=== PATIENT | female | born 1935 | race Asian ===

== ENCOUNTER 2018-03-20 20:44 | Inpatient (IN) | payer MEDICARE, MEDICAID ==
[~2018-03-20] VITALS: Ht 165.1 cm; Wt 73.5 kg
[~2018-03-20 20:44] MED LIST: CLON0.1T PO; FELO10TA PO; FURO-151 PO; HYDR-4135 PO; ROSU20TA PO; VALS320T16 PO
[2018-03-20] MEDS ORDERED: SODIUM CHLORIDE 0.9% 500 ML IV ONE (21:11)
[2018-03-20] MEDS ORDERED: PRED10TA PO (21:45)
[2018-03-20] MEDS ORDERED: ASPI-1158 PO (21:46)
[2018-03-20] MEDS ORDERED: IRBE150T27 MT (21:48)
[2018-03-20] MEDS ORDERED: GABA-529 PO (21:49)
[2018-03-20] MEDS ORDERED: AMLO5TAB4 MT (21:51)
[2018-03-20 22:59] LABS: CLARITY URINE CLEAR (CLEAR); COLOR URINE YELLOW (YELLOW); KETONES URINE NEGATIVE (NEGATIVE); LEUKOCYTE ESTERASE URINE TRACE (NEGATIVE); NITRITE URINE NEGATIVE (NEGATIVE); OCCULT BLOOD URINE NEGATIVE (NEGATIVE); PH URINE 5.5 (4.5-8.0); PROTEIN URINE TRACE (NEGATIVE); SPECIFIC GRAVITY URINE 1.004 (1.005-1.030); UROBILINOGEN URINE 0.2 E.U./dL (0.2-1.0)
[2018-03-20 23:21] LABS: BASOPHILS % 0.4 % (0.0-2.0); EOSINOPHILS % 0.3 % (0.0-5.0); HEMATOCRIT. 33.9 % (36.0-48.0); HEMOGLOBIN. 11.2 g/dL (12.0-16.0); LYMPHOCYTES % 26.2 % (20.0-50.0); MEAN CORPUSCULAR VOLUME 93.6 fL (81.0-99.0); MEAN PLATELET VOLUME 8.8 fl (7.4-10.4); MONOCYTES % 11.6 % (2.0-8.0); NEUTROPHILS % 61.5 % (40.0-76.0); PLATELET 128 x1000/uL (130-400); RED BLOOD CELL COUNT 3.62 mill/uL (4.2-5.4); RED CELL DISTRIBUTION WIDTH 13.7 % (11.6-14.6)
[2018-03-20 23:23] LABS: CHLORIDE 110 mEq/L (98-107)
[2018-03-20 23:26] LABS: PROTHROMBIN TIME 10.4 sec (9.1-11.1)
[2018-03-21] MEDS ORDERED: CEFTRIAXONE 1 G PREMIX 50 ML IV ONE (00:45)
[2018-03-21] MEDS ORDERED: ONDANSETRON HCL 4MG/2ML INJ IV PRN (12:45)
[2018-03-21] MEDS ORDERED: GUAIFENESIN 200MG/10ML SUGAR FREE UDC PO PRN (12:45)
[2018-03-21] MEDS ORDERED: LORAZEPAM 0.5MG TABLET PO PRN (12:45)
[2018-03-21] MEDS ORDERED: IPRATROPIUM/ALBUTEROL 0.5-3(2.5)MG/3ML NEB INH PRN (12:45)
[2018-03-21] MEDS ORDERED: NA PHOS,M-B/NA PHOS,DI-BA ENEMA 118ML PR PRN (12:45)
[2018-03-21] MEDS: DEXT 5%/0.45% NACL 1000ML 1,000 ML IV SCH ×2 (12:45→15:27)
[2018-03-21] MEDS ORDERED: ACETAMINOPHEN 325MG TABLET PO PRN (12:45)
[2018-03-21] MEDS ORDERED: HYDROCODONE/ACETAMINOPHEN 5/325MG TABLET PO PRN (12:45)
[2018-03-21] MEDS ORDERED: DEXTROSE 50% WATER 50ML SYRINGE IV PRN (12:45)
[2018-03-21] MEDS ORDERED: ACETAMINOPHEN 650MG SUPP PR PRN (12:45)
[2018-03-21] MEDS ORDERED: CLONIDINE 0.1MG TABLET PO PRN (12:45)
[2018-03-21] MEDS ORDERED: DIPHENHYDRAMINE 50MG/ML VIAL IV PRN (12:45)
[2018-03-21] MEDS ORDERED: MAGNESIUM/ALUMINUM HYDROXIDE/SIMETHICONE 30ML UDC PO PRN (12:45)
[2018-03-21 13:01] LABS: BG BASE EXCESS -2.9 mmol/L (-2.0-2.0); BG CARBOXYHEMOGLOBIN 0.3 % (0.5-1.5); BG DEOXYHEMOGLOBIN 4.8 % (0.0-5.0); BG HCO3 ACT 21.5 mmol/L (22.0-26.0); BG METHEMOGLOBIN 0.3 % (0.0-1.5); BG OXYGEN SATURATION 95.2 % (92.0-98.5); BG OXYHEMOGLOBIN 94.6 % (94.0-97.0); BG PCO2 36.4 mmHg (35.0-45.0); BG PO2 79.5 mmHg (75.0-100.0); BG SAMPLE SITE RIGHT RADIAL; BG TOTAL HEMOGLOBIN 11.4 g/dL (12.0-18.0); BG VENT MODE ROOM AIR
[2018-03-21] MEDS ORDERED: PIPERACILLIN/TAZ 2.25G PREMIX 50 ML IV SCH (13:30)
[2018-03-21 20:00] VITALS: BP 189/53
[2018-03-21 20:34] LABS: CREATINE KINASE 69 IU/L (26-192); CREATINE KINASE MB FRACTION < 1.0 ng/mL (0.5-3.6)
[2018-03-21] MEDS: BLOOD SUGAR DIAGNOSTIC STRIP TEST SCH (21:00)
[2018-03-21 21:30] VITALS: BP 139/53
[2018-03-21] MEDS: PIPERACILLIN/TAZ 2.25G PREMIX 50 ML IV SCH (22:28)
[2018-03-21] MEDS: INSULIN LISPRO 100 UNITS/ML SUBCUT SCH (22:28)
[2018-03-22] VITALS: BP 123/56
[2018-03-22 00:44] LABS: CREATINE KINASE 69 IU/L (26-192)
[2018-03-22 00:45] LABS: CREATINE KINASE MB FRACTION < 1.0 ng/mL (0.5-3.6)
[2018-03-22] MEDS: IPRATROPIUM/ALBUTEROL 0.5-3(2.5)MG/3ML NEB INH SCH ×4 (01:45→21:45)
[2018-03-22] MEDS: ASPIRIN 81MG EC TABLET PO SCH (02:34)
[2018-03-22 04:00] VITALS: BP 128/57
[2018-03-22] MEDS: PIPERACILLIN/TAZ 2.25G PREMIX 50 ML IV SCH ×2 (06:23→13:59)
[2018-03-22] MEDS: BLOOD SUGAR DIAGNOSTIC STRIP TEST SCH ×4 (06:35→21:00)
[2018-03-22] MEDS: INSULIN LISPRO 100 UNITS/ML SUBCUT SCH ×4 (06:36→21:00)
[2018-03-22] MEDS: PANTOPRAZOLE 40MG DR TABLET PO SCH (06:46)
[2018-03-22 07:01] LABS: CHLORIDE 114 mEq/L (98-107)
[2018-03-22 07:10] LABS: HEMATOCRIT. 32.3 % (36.0-48.0); HEMOGLOBIN. 10.7 g/dL (12.0-16.0); MEAN CORPUSCULAR HEMOGLOBIN 30.7 pg (28.0-32.0); MEAN CORPUSCULAR VOLUME 92.9 fL (81.0-99.0); PLATELET 133 x1000/uL (130-400); RED BLOOD CELL COUNT 3.48 mill/uL (4.2-5.4); RED CELL DISTRIBUTION WIDTH 13.6 % (11.6-14.6)
[2018-03-22 07:11] LABS: HDL CHOLESTEROL 41 mg/dL (40-59); LDL CHOLESTEROL 31 mg/dL (5-100)
[2018-03-22 07:12] LABS: T4 FREE 1.17 ng/dL (0.76-1.46)
[2018-03-22 08:00] VITALS: BP_SYST 125; BP_SYST 147; BP_DIAS 49; BP_DIAS 67
[2018-03-22] MEDS: ENOXAPARIN 30MG/0.3ML SYR SUBCUT SCH (10:00)
[2018-03-22] MEDS: LOSARTAN POTASSIUM 100 MG TABLET PO SCH (10:00)
[2018-03-22 12:00] VITALS: BP 125/49
[2018-03-22 14:36] LABS: ATYPICAL LYMPHOCYTES 5; PLATELET ESTIMATE NORMAL
[2018-03-22 16:00] VITALS: BP 118/62
[2018-03-22 20:00] VITALS: BP 127/54
[2018-03-23] VITALS: BP 147/54
[2018-03-23] MEDS: DEXT 5%/0.45% NACL 1000ML 1,000 ML IV SCH (01:08)
[2018-03-23] MEDS: PIPERACILLIN/TAZ 2.25G PREMIX 50 ML IV SCH ×2 (01:08→06:01)
[2018-03-23] MEDS: IPRATROPIUM/ALBUTEROL 0.5-3(2.5)MG/3ML NEB INH SCH ×3 (03:23→14:05)
[2018-03-23 04:00] VITALS: BP 134/52
[2018-03-23] MEDS: PANTOPRAZOLE 40MG DR TABLET PO SCH (06:01)
[2018-03-23] MEDS: INSULIN LISPRO 100 UNITS/ML SUBCUT SCH ×2 (06:02→12:24)
[2018-03-23] MEDS: BLOOD SUGAR DIAGNOSTIC STRIP TEST SCH ×2 (06:02→12:19)
[2018-03-23 06:31] LABS: BASOPHILS % 0.8 % (0.0-2.0); EOSINOPHILS % 0.6 % (0.0-5.0); HEMATOCRIT. 31.8 % (36.0-48.0); HEMOGLOBIN. 10.5 g/dL (12.0-16.0); LYMPHOCYTES % 40.9 % (20.0-50.0); MEAN CORPUSCULAR HEMOGLOBIN 30.8 pg (28.0-32.0); MEAN CORPUSCULAR VOLUME 93.4 fL (81.0-99.0); MEAN PLATELET VOLUME 8.8 fl (7.4-10.4); MONOCYTES % 14.7 % (2.0-8.0); PLATELET 130 x1000/uL (130-400); RED BLOOD CELL COUNT 3.41 mill/uL (4.2-5.4); RED CELL DISTRIBUTION WIDTH 13.8 % (11.6-14.6)
[2018-03-23 08:00] VITALS: BP 127/52
[2018-03-23] MEDS: ASPIRIN 81MG EC TABLET PO SCH (09:50)
[2018-03-23] MEDS: LOSARTAN POTASSIUM 100 MG TABLET PO SCH (09:50)
[2018-03-23] MEDS: ENOXAPARIN 30MG/0.3ML SYR SUBCUT SCH (09:51)
[2018-03-23 12:00] VITALS: BP 143/60
[2018-03-23] MEDS ORDERED: PREDNISONE 20MG TABLET PO SCH (14:00)
[2018-03-23 14:19] VITALS: BP 143/60
== END 2018-03-23 14:50 | disposition home or self-care (01) | DRG 177 ==
LOC: ER 21:09 → EDBEDREQDT 03-21 00:11 → EDBEDREQ 03-21 01:25 → EDBEDREQTM 03-21 01:25 → EDBEDREQDT 03-21 01:25 → ENRESERV 03-21 19:04 → 5WST 03-21 20:10
PROVIDERS: ADMIT Internal Medicine; ATTEND Internal Medicine
DX: J69.0 Pneumonitis due to inhalation of food and vomit (principal); I50.33 Acute on chronic diastolic (congestive) heart failure; I13.0 Hypertensive heart and chronic kidney disease with heart failure and stage 1 through stage 4 chronic kidney disease, or unspecified chronic kidney disease; N17.9 Acute kidney failure, unspecified; G93.40 Encephalopathy, unspecified; N39.0 Urinary tract infection, site not specified; J44.1 Chronic obstructive pulmonary disease with (acute) exacerbation; J98.11 Atelectasis; J84.9 Interstitial pulmonary disease, unspecified; G90.8 Other disorders of autonomic nervous system; E11.65 Type 2 diabetes mellitus with hyperglycemia; D64.9 Anemia, unspecified; E11.22 Type 2 diabetes mellitus with diabetic chronic kidney disease; E86.0 Dehydration; N18.9 Chronic kidney disease, unspecified; E78.5 Hyperlipidemia, unspecified; I27.20 Pulmonary hypertension, unspecified; R79.1 Abnormal coagulation profile; Z79.899 Other long term (current) drug therapy
CPT/HCPCS: 36415; 36600; 70551; 71045; 78582; 80048; 80061; 82375; 82550; 82553; 82805; 82962; 83036; 83605; 83880; 84439; 84443; 84484; 85379; 92610; 93005; 93306; 93880; 93970; 94640; 96361; 96365; 97110; 97162; 99284; 99285; A9558; J0696; J1650; J1815; J2543; J7030; J7040; J7512; J7620

== ENCOUNTER 2019-02-09 12:18 | Inpatient (IN) | payer MEDICARE, MEDICAID ==
[~2019-02-09] VITALS: Ht 167.6 cm; Wt 86.6 kg
[~2019-02-09 12:18] MED LIST changes: +AMLO5TAB4 MT; +ASPI-1158 PO; -FELO10TA PO; +GABA-529 PO; -ROSU20TA PO; +ROSU20TA2 PO; -VALS320T16 PO
[2019-02-09] MEDS ORDERED: SODIUM CHLORIDE 0.9% 1,000 ML IV ONE (12:30)
[2019-02-09] MEDS ORDERED: ACETAMINOPHEN 325MG TABLET PO STA (12:30)
[2019-02-09] MEDS ORDERED: ACETAMINOPHEN 650MG SUPP PR STA (12:53)
[2019-02-09 13:02] LABS: BASOPHILS % 0.4 % (0.0-2.0); EOSINOPHILS % 1.1 % (0.0-5.0); HEMATOCRIT. 41.2 % (36.0-48.0); HEMOGLOBIN. 13.6 g/dL (12.0-16.0); LYMPHOCYTES % 12.8 % (20.0-50.0); MEAN CORPUSCULAR HEMOGLOBIN 30.4 pg (28.0-32.0); MEAN CORPUSCULAR VOLUME 92.2 fL (81.0-99.0); MEAN PLATELET VOLUME 9.1 fl (7.4-10.4); MONOCYTES % 9.1 % (2.0-8.0); NEUTROPHILS % 76.6 % (40.0-76.0); PLATELET 191 x1000/uL (130-400); RED BLOOD CELL COUNT 4.47 mill/uL (4.2-5.4); RED CELL DISTRIBUTION WIDTH 13.4 % (11.6-14.6)
[2019-02-09 13:10] LABS: PROTHROMBIN TIME 10.8 sec (9.6-11.0)
[2019-02-09 13:13] LABS: CHLORIDE 99 mEq/L (98-107)
[2019-02-09] MEDS ORDERED: VANCOMYCIN 1 G PREMIX 200 ML IV ONE (13:30)
[2019-02-09] MEDS ORDERED: PIPERACILLIN/TAZ 3.375G PREMIX 50 ML IV ONE (13:30)
[2019-02-09] MEDS ORDERED: SODIUM CHLORIDE 0.9% 1000ML BAG (SEPSIS BOLUS) IV ONE (13:30)
[2019-02-09 22:01] LABS: CLARITY URINE CLEAR (CLEAR); COLOR URINE YELLOW (YELLOW); KETONES URINE NEGATIVE (NEGATIVE); LEUKOCYTE ESTERASE URINE NEGATIVE (NEGATIVE); NITRITE URINE NEGATIVE (NEGATIVE); OCCULT BLOOD URINE 1+ (NEGATIVE); PH URINE 5.5 (4.5-8.0); PROTEIN URINE 1+ (NEGATIVE); SPECIFIC GRAVITY URINE 1.011 (1.005-1.030)
[2019-02-10] VITALS (9 sets, daily range): BP systolic 122–166; BP diastolic 35–85
[2019-02-10] MEDS ORDERED: IPRATROPIUM/ALBUTEROL 0.5-3(2.5)MG/3ML NEB HHN SCH (04:00)
[2019-02-10] MEDS ORDERED: METHYLPREDNISOLONE SOD SUCC 125 MG/2 ML VIAL IV SCH (04:40)
[2019-02-10] MEDS ORDERED: PIPERACILLIN/TAZOBACTAM 2.25 G in DEXTROSE 5% WATER 50 ML IV SCH (06:00)
[2019-02-10 09:49] LABS: BG BASE EXCESS -2.3 mmol/L (-2.0-2.0); BG DEOXYHEMOGLOBIN 5.1 % (0.0-5.0); BG FRACTION INSPIRED OXYGEN 32; BG HCO3 ACT 22.3 mmol/L (22.0-26.0); BG METHEMOGLOBIN 0.3 % (0.0-1.5); BG OXYGEN SATURATION 94.8 % (92.0-98.5); BG OXYHEMOGLOBIN 93.6 % (94.0-97.0); BG PCO2 37.7 mmHg (35.0-45.0); BG PO2 74.7 mmHg (75.0-100.0); BG SAMPLE SITE RIGHT RADIAL; BG VENT MODE NASAL CANNULA
[2019-02-10] MEDS ORDERED: CLONIDINE 0.1MG TABLET PO PRN (10:00)
[2019-02-10] MEDS ORDERED: ONDANSETRON HCL 4MG/2ML INJ IV PRN (10:00)
[2019-02-10] MEDS ORDERED: LORAZEPAM 0.5MG TABLET PO PRN (10:00)
[2019-02-10] MEDS ORDERED: DIPHENHYDRAMINE 50MG/ML VIAL IV PRN (10:00)
[2019-02-10] MEDS ORDERED: DOCUSATE SODIUM 100MG CAPSULE PO PRN (10:00)
[2019-02-10] MEDS ORDERED: HYDROCODONE/ACETAMINOPHEN 5/325MG TABLET PO PRN (10:00)
[2019-02-10] MEDS ORDERED: IPRATROPIUM/ALBUTEROL 0.5-3(2.5)MG/3ML NEB NEB PRN (10:00)
[2019-02-10] MEDS ORDERED: ACETAMINOPHEN 650MG SUPP PR PRN (10:00)
[2019-02-10] MEDS ORDERED: ACETAMINOPHEN 325MG TABLET PO PRN (10:00)
[2019-02-10] MEDS ORDERED: MAGNESIUM/ALUMINUM HYDROXIDE/SIMETHICONE 30ML UDC PO PRN (10:00)
[2019-02-10] MEDS ORDERED: DEXTROSE 50% WATER 50ML SYRINGE IV PRN (10:00)
[2019-02-10] MEDS ORDERED: NA PHOS,M-B/NA PHOS,DI-BA ENEMA 118ML PR PRN (10:00)
[2019-02-10 10:58] LABS: BG BASE EXCESS -0.6 mmol/L (-2.0-2.0); BG CARBOXYHEMOGLOBIN 0.3 % (0.5-1.5); BG DEOXYHEMOGLOBIN 7.8 % (0.0-5.0); BG FRACTION INSPIRED OXYGEN 21; BG HCO3 ACT 23.6 mmol/L (22.0-26.0); BG METHEMOGLOBIN 0.1 % (0.0-1.5); BG OXYGEN SATURATION 92.2 % (92.0-98.5); BG OXYHEMOGLOBIN 91.8 % (94.0-97.0); BG PCO2 37.8 mmHg (35.0-45.0); BG PH 7.414 (7.350-7.450); BG PO2 60.3 mmHg (75.0-100.0); BG SAMPLE SITE RIGHT RADIAL; BG TOTAL HEMOGLOBIN 13.3 g/dL (12.0-18.0); BG VENT MODE ROOM AIR
[2019-02-10] MEDS ORDERED: SODIUM CHLORIDE 0.9% FOR INH 3ML VIAL NEB INH ONE (11:30)
[2019-02-10] MEDS: BLOOD SUGAR DIAGNOSTIC STRIP TEST SCH ×3 (12:07→21:18)
[2019-02-10] MEDS: METHYLPREDNISOLONE SOD SUCC 40 MG/ML VIAL IV SCH ×2 (12:22→21:00)
[2019-02-10 12:35] LABS: HEMOGLOBIN. 13.1 g/dL (12.0-16.0); MEAN CORPUSCULAR HEMOGLOBIN 30.5 pg (28.0-32.0); MEAN CORPUSCULAR VOLUME 90.8 fL (81.0-99.0); MEAN PLATELET VOLUME 8.5 fl (7.4-10.4); PLATELET 179 x1000/uL (130-400); RED BLOOD CELL COUNT 4.29 mill/uL (4.2-5.4); RED CELL DISTRIBUTION WIDTH 13.7 % (11.6-14.6)
[2019-02-10] MEDS ORDERED: INSULIN LISPRO 100 UNITS/ML SUBCUT SCH (13:00)
[2019-02-10] MEDS ORDERED: INSULIN LISPRO 100 UNITS/ML SUBCUT NR (13:00)
[2019-02-10] MEDS ORDERED: VANCOMYCIN 500 MG PREMIX 100 ML IV SCH (13:00)
[2019-02-10 13:14] LABS: PLATELET ESTIMATE NORMAL
[2019-02-10] MEDS ORDERED: RACEPINEPHRINE 2.25% 0.5ML NEB VIAL ONE (13:34)
[2019-02-10] MEDS: PIPERACILLIN/TAZOBACTAM 2.25 G in DEXTROSE 5% WATER 50 ML IV SCH ×2 (14:18→18:30)
[2019-02-10] MEDS: AMLODIPINE 5MG TABLET PO SCH (15:38)
[2019-02-10 17:00] LABS: *BARBITURATES SCREEN URINE NEGATIVE (NEGATIVE); *BENZODIAZEPINES SCREEN URINE NEGATIVE (NEGATIVE); *COCAINE SCREEN URINE NEGATIVE (NEGATIVE); METHADONE URINE SCREEN NEGATIVE (NEGATIVE); OPIATES URINE SCREEN NEGATIVE (NEGATIVE); PHENCYCLIDINE URINE SCREEN NEGATIVE (NEGATIVE)
[2019-02-10 17:01] LABS: *AMPHETAMINES SCREEN URINE NEGATIVE (NEGATIVE); CANNABINOID URINE SCREEN NEGATIVE (NEGATIVE)
[2019-02-10] MEDS: VANCOMYCIN 750 MG PREMIX 150 ML IV SCH (18:29)
[2019-02-10] MEDS: ENOXAPARIN 40MG/0.4ML SYR SUBCUT SCH (18:30)
[2019-02-10] MEDS: HYDRALAZINE HCL 50MG TABLET PO SCH (18:30)
[2019-02-10] MEDS: INSULIN LISPRO 100 UNITS/ML SUBCUT SCH ×2 (18:31→21:17)
[2019-02-10] MEDS ORDERED: POTASSIUM CHLORIDE 20MEQ TABLET SR PO NR (20:00)
[2019-02-10] MEDS: FAMOTIDINE 40MG TABLET PO SCH (20:59)
[2019-02-10] MEDS: ATORVASTATIN CALCIUM 40MG TABLET PO SCH (20:59)
[2019-02-10] MEDS ORDERED: ATORVASTATIN CALCIUM 40MG TABLET PO SCH (21:00)
[2019-02-10] MEDS: INSULIN GLARGINE UD 100 UNITS/ML SYR SUBCUT SCH (21:18)
[2019-02-10] MEDS: GUAIFENESIN 200MG/10ML SUGAR FREE UDC PO PRN (21:20)
[2019-02-11] VITALS (7 sets, daily range): BP systolic 112–145; BP diastolic 45–70
[2019-02-11] MEDS: PIPERACILLIN/TAZOBACTAM 2.25 G in DEXTROSE 5% WATER 50 ML IV SCH ×4 (00:31→18:00)
[2019-02-11] MEDS: IPRATROPIUM/ALBUTEROL 0.5-3(2.5)MG/3ML NEB NEB SCH ×4 (04:28→21:55)
[2019-02-11] MEDS: METHYLPREDNISOLONE SOD SUCC 40 MG/ML VIAL IV SCH ×2 (04:29→11:53)
[2019-02-11] MEDS: BLOOD SUGAR DIAGNOSTIC STRIP TEST SCH ×4 (06:17→21:40)
[2019-02-11 08:56] LABS: BG BASE EXCESS -2.2 mmol/L (-2.0-2.0); BG CARBOXYHEMOGLOBIN 0.1 % (0.5-1.5); BG DEOXYHEMOGLOBIN 5.7 % (0.0-5.0); BG HCO3 ACT 21.3 mmol/L (22.0-26.0); BG METHEMOGLOBIN 0.3 % (0.0-1.5); BG OXYGEN SATURATION 94.3 % (92.0-98.5); BG OXYHEMOGLOBIN 93.9 % (94.0-97.0); BG PCO2 32.6 mmHg (35.0-45.0); BG PH 7.433 (7.350-7.450); BG PO2 68.3 mmHg (75.0-100.0); BG SAMPLE SITE RIGHT BRACHIAL; BG TOTAL HEMOGLOBIN 12.9 g/dL (12.0-18.0); BG VENT MODE ROOM AIR
[2019-02-11] MEDS ORDERED: MEDICATION NOT ON FORMULARY EA (Rosuvastatin Calcium (Crestor) 1 TAB) PO SCH (09:00)
[2019-02-11] MEDS: INSULIN LISPRO 100 UNITS/ML SUBCUT SCH ×4 (09:13→22:28)
[2019-02-11] MEDS: GABAPENTIN 100MG CAPSULE PO SCH (09:14)
[2019-02-11] MEDS: FUROSEMIDE 40MG TABLET PO SCH (09:14)
[2019-02-11] MEDS: ASPIRIN 81MG EC TABLET PO SCH (09:14)
[2019-02-11] MEDS: HYDRALAZINE HCL 50MG TABLET PO SCH ×3 (09:15→17:09)
[2019-02-11] MEDS: AMLODIPINE 5MG TABLET PO SCH (09:15)
[2019-02-11 09:17] LABS: HEMOGLOBIN. 12.4 g/dL (12.0-16.0); MEAN CORPUSCULAR HEMOGLOBIN 30.3 pg (28.0-32.0); MEAN CORPUSCULAR VOLUME 90.6 fL (81.0-99.0); MEAN PLATELET VOLUME 8.6 fl (7.4-10.4); PLATELET 185 x1000/uL (130-400); RED BLOOD CELL COUNT 4.08 mill/uL (4.2-5.4); RED CELL DISTRIBUTION WIDTH 13.4 % (11.6-14.6)
[2019-02-11 09:36] LABS: CHLORIDE 106 mEq/L (98-107)
[2019-02-11] MEDS: BUDESONIDE 0.5MG/2ML NEB HHN SCH ×2 (09:36→21:55)
[2019-02-11 09:44] LABS: LDL CHOLESTEROL 55 mg/dL (5-100)
[2019-02-11 09:46] LABS: HDL CHOLESTEROL 42 mg/dL (40-59)
[2019-02-11 10:28] LABS: PLATELET ESTIMATE NORMAL
[2019-02-11] MEDS: INSULIN GLARGINE UD 100 UNITS/ML SYR SUBCUT SCH ×2 (12:00→22:28)
[2019-02-11] MEDS ORDERED: INSULIN GLARGINE UD 100 UNITS/ML SYR SUBCUT SCH (15:00)
[2019-02-11] MEDS: GUAIFENESIN 200MG/10ML SUGAR FREE UDC PO PRN (17:08)
[2019-02-11] MEDS: ENOXAPARIN 40MG/0.4ML SYR SUBCUT SCH (17:08)
[2019-02-11] MEDS ORDERED: LORAZEPAM 2MG/ML CPJ IV PRN (17:15)
[2019-02-11] MEDS ORDERED: HYDROCODONE/ACETAMINOPHEN 5/325MG TABLET PO PRN (17:15)
[2019-02-11] MEDS: FAMOTIDINE 40MG TABLET PO SCH (22:17)
[2019-02-11] MEDS: ATORVASTATIN CALCIUM 40MG TABLET PO SCH (22:17)
[2019-02-12] VITALS: BP 115/84
[2019-02-12] MEDS: METHYLPREDNISOLONE SOD SUCC 40 MG/ML VIAL IV SCH ×2 (00:36→13:04)
[2019-02-12] MEDS: PIPERACILLIN/TAZOBACTAM 2.25 G in DEXTROSE 5% WATER 50 ML IV SCH ×3 (00:36→17:40)
[2019-02-12] MEDS: IPRATROPIUM/ALBUTEROL 0.5-3(2.5)MG/3ML NEB NEB SCH ×4 (02:32→20:59)
[2019-02-12 04:00] VITALS: BP 120/49
[2019-02-12] MEDS: VANCOMYCIN 750 MG PREMIX 150 ML IV SCH ×2 (04:18→20:59)
[2019-02-12] MEDS: BLOOD SUGAR DIAGNOSTIC STRIP TEST SCH ×4 (05:52→20:59)
[2019-02-12] MEDS: INSULIN LISPRO 100 UNITS/ML SUBCUT SCH ×4 (06:31→21:24)
[2019-02-12 08:00] VITALS: BP 130/67
[2019-02-12] MEDS: BUDESONIDE 0.5MG/2ML NEB HHN SCH ×2 (08:31→21:31)
[2019-02-12 09:10] LABS: HEMATOCRIT. 35.2 % (36.0-48.0); HEMOGLOBIN. 11.8 g/dL (12.0-16.0); MEAN CORPUSCULAR HEMOGLOBIN 30.4 pg (28.0-32.0); MEAN CORPUSCULAR VOLUME 90.8 fL (81.0-99.0); MEAN PLATELET VOLUME 8.8 fl (7.4-10.4); PLATELET 198 x1000/uL (130-400); RED BLOOD CELL COUNT 3.88 mill/uL (4.2-5.4); RED CELL DISTRIBUTION WIDTH 13.5 % (11.6-14.6)
[2019-02-12] MEDS: ASPIRIN 81MG EC TABLET PO SCH (09:27)
[2019-02-12] MEDS: AMLODIPINE 5MG TABLET PO SCH (09:28)
[2019-02-12] MEDS: FUROSEMIDE 40MG TABLET PO SCH (09:28)
[2019-02-12] MEDS: HYDRALAZINE HCL 50MG TABLET PO SCH ×3 (09:28→17:41)
[2019-02-12] MEDS: GABAPENTIN 100MG CAPSULE PO SCH (09:28)
[2019-02-12] MEDS ORDERED: INSULIN LISPRO 100 UNITS/ML SUBCUT NR ×2 (10:15→16:45)
[2019-02-12] MEDS: INSULIN GLARGINE UD 100 UNITS/ML SYR SUBCUT SCH ×2 (10:41→21:25)
[2019-02-12 12:00] VITALS: BP 111/51
[2019-02-12] MEDS ORDERED: PIPERACILLIN/TAZOBACTAM 2.25 G in DEXTROSE 5% WATER 50 ML IV SCH (13:30)
[2019-02-12 14:21] LABS: PLATELET ESTIMATE NORMAL
[2019-02-12 16:00] VITALS: BP 119/42
[2019-02-12] MEDS: ENOXAPARIN 40MG/0.4ML SYR SUBCUT SCH (16:51)
[2019-02-12 20:00] VITALS: BP 109/47
[2019-02-12] MEDS: ATORVASTATIN CALCIUM 40MG TABLET PO SCH (20:58)
[2019-02-12] MEDS: FAMOTIDINE 40MG TABLET PO SCH (20:58)
[2019-02-13] VITALS: BP 91/49
[2019-02-13] MEDS: PIPERACILLIN/TAZOBACTAM 2.25 G in DEXTROSE 5% WATER 50 ML IV SCH ×4 (00:50→17:33)
[2019-02-13] MEDS: METHYLPREDNISOLONE SOD SUCC 40 MG/ML VIAL IV SCH ×2 (00:50→13:01)
[2019-02-13 04:00] VITALS: BP 137/59
[2019-02-13] MEDS: INSULIN LISPRO 100 UNITS/ML SUBCUT SCH ×4 (06:10→21:17)
[2019-02-13] MEDS: BLOOD SUGAR DIAGNOSTIC STRIP TEST SCH ×4 (06:45→21:09)
[2019-02-13] MEDS: BUDESONIDE 0.5MG/2ML NEB HHN SCH (07:56)
[2019-02-13] MEDS: IPRATROPIUM/ALBUTEROL 0.5-3(2.5)MG/3ML NEB NEB SCH ×3 (07:56→21:33)
[2019-02-13 08:00] VITALS: BP 126/54
[2019-02-13] MEDS: GABAPENTIN 100MG CAPSULE PO SCH (09:33)
[2019-02-13] MEDS: HYDRALAZINE HCL 50MG TABLET PO SCH ×3 (09:33→17:33)
[2019-02-13] MEDS: ASPIRIN 81MG EC TABLET PO SCH (09:33)
[2019-02-13] MEDS: FUROSEMIDE 40MG TABLET PO SCH (09:33)
[2019-02-13] MEDS: INSULIN GLARGINE UD 100 UNITS/ML SYR SUBCUT SCH ×2 (09:34→21:17)
[2019-02-13] MEDS: AMLODIPINE 5MG TABLET PO SCH (09:34)
[2019-02-13 12:00] VITALS: BP 133/56
[2019-02-13] MEDS ORDERED: INSULIN GLARGINE UD 100 UNITS/ML SYR SUBCUT NR (12:30)
[2019-02-13 16:00] VITALS: BP 123/60
[2019-02-13] MEDS: ENOXAPARIN 40MG/0.4ML SYR SUBCUT SCH (17:33)
[2019-02-13 20:00] VITALS: BP 127/53
[2019-02-13] MEDS: VANCOMYCIN 750 MG PREMIX 150 ML IV SCH (21:08)
[2019-02-13] MEDS: ATORVASTATIN CALCIUM 40MG TABLET PO SCH (21:08)
[2019-02-13] MEDS: FAMOTIDINE 40MG TABLET PO SCH (21:09)
[2019-02-13] MEDS ORDERED: INSULIN GLARGINE UD 100 UNITS/ML SYR SUBCUT SCH (22:00)
[2019-02-14] VITALS (7 sets, daily range): BP systolic 113–146; BP diastolic 52–68
[2019-02-14] MEDS: METHYLPREDNISOLONE SOD SUCC 40 MG/ML VIAL IV SCH ×2 (00:29→11:58)
[2019-02-14] MEDS: PIPERACILLIN/TAZOBACTAM 2.25 G in DEXTROSE 5% WATER 50 ML IV SCH ×4 (00:29→17:14)
[2019-02-14] MEDS: IPRATROPIUM/ALBUTEROL 0.5-3(2.5)MG/3ML NEB NEB SCH ×4 (01:46→20:50)
[2019-02-14] MEDS: BLOOD SUGAR DIAGNOSTIC STRIP TEST SCH ×6 (02:00→21:23)
[2019-02-14 06:06] LABS: HEMOGLOBIN 12.6 g/dL (12.0-16.0); MEAN CORPUSCULAR HEMOGLOBIN 30.7 pg (28.0-32.0); MEAN CORPUSCULAR VOLUME 90.6 fL (81.0-99.0); PLATELET 229 x1000/uL (130-400); RED BLOOD CELL COUNT 4.08 mill/uL (4.2-5.4); RED CELL DISTRIBUTION WIDTH 13.7 % (11.6-14.6)
[2019-02-14] MEDS: INSULIN LISPRO 100 UNITS/ML SUBCUT SCH ×4 (06:45→21:26)
[2019-02-14] MEDS: ASPIRIN 81MG EC TABLET PO SCH (08:48)
[2019-02-14] MEDS: HYDRALAZINE HCL 50MG TABLET PO SCH ×3 (08:49→17:14)
[2019-02-14] MEDS: FUROSEMIDE 40MG TABLET PO SCH (08:49)
[2019-02-14] MEDS: GABAPENTIN 100MG CAPSULE PO SCH (08:49)
[2019-02-14] MEDS: AMLODIPINE 5MG TABLET PO SCH (08:49)
[2019-02-14] MEDS: INSULIN GLARGINE UD 100 UNITS/ML SYR SUBCUT SCH ×2 (09:52→21:28)
[2019-02-14] MEDS ORDERED: POTASSIUM CHLORIDE 20MEQ TABLET SR PO SCH (15:15)
[2019-02-14] MEDS: ENOXAPARIN 40MG/0.4ML SYR SUBCUT SCH (17:15)
[2019-02-14] MEDS: VANCOMYCIN 750 MG PREMIX 150 ML IV SCH (21:23)
[2019-02-14] MEDS: FAMOTIDINE 40MG TABLET PO SCH (21:24)
[2019-02-14] MEDS: ATORVASTATIN CALCIUM 40MG TABLET PO SCH (21:24)
== END 2019-02-14 22:50 | DRG 871 ==
LOC: ER 12:18 → 5EST 13:45 → EDBEDREQ 13:47 → ENRESERV 02-10 09:32 → SUPCPDRO 02-10 09:59 → 3WST 02-11 00:20 → 5WST 02-11 10:40
PROVIDERS: ADMIT Ophthalmology; ATTEND Ophthalmology
DX: A41.9 Sepsis, unspecified organism (principal); I50.33 Acute on chronic diastolic (congestive) heart failure; J18.9 Pneumonia, unspecified organism; E87.1 Hypo-osmolality and hyponatremia; E87.2 Acidosis; N17.9 Acute kidney failure, unspecified; J44.1 Chronic obstructive pulmonary disease with (acute) exacerbation; N39.0 Urinary tract infection, site not specified; J44.0 Chronic obstructive pulmonary disease with (acute) lower respiratory infection; G93.40 Encephalopathy, unspecified; R06.03 Acute respiratory distress; I11.0 Hypertensive heart disease with heart failure; E87.6 Hypokalemia; I27.20 Pulmonary hypertension, unspecified; R09.02 Hypoxemia; K76.89 Other specified diseases of liver; T38.0X5A Adverse effect of glucocorticoids and synthetic analogues, initial encounter; E11.65 Type 2 diabetes mellitus with hyperglycemia; F03.90 Unspecified dementia, unspecified severity, without behavioral disturbance, psychotic disturbance, mood disturbance, and anxiety; G89.29 Other chronic pain; K80.20 Calculus of gallbladder without cholecystitis without obstruction; M48.061 Spinal stenosis, lumbar region without neurogenic claudication; M54.16 Radiculopathy, lumbar region; Z78.1 Physical restraint status; Z79.82 Long term (current) use of aspirin; Z79.899 Other long term (current) drug therapy; Y92.89 Other specified places as the place of occurrence of the external cause
CPT/HCPCS: 36415; 36600; 71045; 71250; 72148; 80048; 80053; 80061; 80202; 80305; 81003; 82375; 82805; 82962; 83036; 83605; 84145; 84439; 84443; 84484; 85025; 85027; 87070; 87804; 93005; 93306; 94640; 96365; 97116; 97162; 97530; 99291; J1200; J1650; J1815; J2543; J2920; J2930; J3370; J7030; J7040; J7060; J7626

== ENCOUNTER 2019-02-14 22:58 | Inpatient (IN) | payer MEDICARE, MEDICAID ==
[~2019-02-14] VITALS: Ht 167.6 cm; Wt 86.6 kg
[2019-02-14 22:58] VITALS: BP 129/46
[2019-02-15] MEDS ORDERED: ONDANSETRON HCL 4MG TABLET PO PRN (00:45)
[2019-02-15] MEDS ORDERED: DIPHENHYDRAMINE 50MG/ML VIAL IV PRN (00:45)
[2019-02-15] MEDS ORDERED: LORAZEPAM 2MG/ML CPJ IV PRN (00:45)
[2019-02-15] MEDS ORDERED: NA PHOS,M-B/NA PHOS,DI-BA ENEMA 118ML PR PRN (00:45)
[2019-02-15] MEDS ORDERED: DOCUSATE SODIUM 100MG CAPSULE PO PRN (00:45)
[2019-02-15] MEDS ORDERED: CLONIDINE 0.1MG TABLET PO PRN (00:45)
[2019-02-15] MEDS ORDERED: MAGNESIUM/ALUMINUM HYDROXIDE/SIMETHICONE 30ML UDC PO PRN (00:45)
[2019-02-15] MEDS ORDERED: ACETAMINOPHEN 325MG TABLET PO PRN ×2 (00:45)
[2019-02-15] MEDS ORDERED: GUAIFENESIN 200MG/10ML SUGAR FREE UDC PO PRN (00:45)
[2019-02-15] MEDS ORDERED: DEXTROSE 50% WATER 50ML SYRINGE IV PRN (00:45)
[2019-02-15] MEDS ORDERED: IPRATROPIUM/ALBUTEROL 0.5-3(2.5)MG/3ML NEB HHN PRN (00:45)
[2019-02-15] MEDS ORDERED: ENOXAPARIN 40MG/0.4ML SYR SUBCUT SCH (00:45)
[2019-02-15] MEDS ORDERED: VANCOMYCIN 1 G PREMIX 200 ML IV SCH (03:00)
[2019-02-15] MEDS: PIPERACILLIN/TAZOBACTAM 2.25 G in DEXTROSE 5% WATER 50 ML IV SCH ×4 (03:21→21:44)
[2019-02-15 06:15] LABS: BASOPHILS % 0.5 % (0.0-2.0); EOSINOPHILS % 0.2 % (0.0-5.0); HEMOGLOBIN. 12.1 g/dL (12.0-16.0); LYMPHOCYTES % 7.1 % (20.0-50.0); MEAN CORPUSCULAR HEMOGLOBIN 29.8 pg (28.0-32.0); MEAN CORPUSCULAR VOLUME 91.4 fL (81.0-99.0); MEAN PLATELET VOLUME 8.9 fl (7.4-10.4); MONOCYTES % 9.2 % (2.0-8.0); PLATELET 219 x1000/uL (130-400); RED BLOOD CELL COUNT 4.05 mill/uL (4.2-5.4); RED CELL DISTRIBUTION WIDTH 13.5 % (11.6-14.6)
[2019-02-15] MEDS: BLOOD SUGAR DIAGNOSTIC STRIP TEST SCH ×4 (06:19→21:00)
[2019-02-15 08:00] VITALS: BP 150/67
[2019-02-15] MEDS: GABAPENTIN 100MG CAPSULE PO SCH (08:09)
[2019-02-15] MEDS: AMLODIPINE 5MG TABLET PO SCH (08:09)
[2019-02-15] MEDS: FUROSEMIDE 40MG TABLET PO SCH (08:10)
[2019-02-15] MEDS: ASPIRIN 81MG TABLET PO SCH (08:10)
[2019-02-15] MEDS: HYDRALAZINE HCL 50MG TABLET PO SCH ×3 (08:10→21:45)
[2019-02-15] MEDS: INSULIN LISPRO 100 UNITS/ML SUBCUT SCH ×4 (08:22→23:36)
[2019-02-15] MEDS ORDERED: METHYLPREDNISOLONE SOD SUCC 40 MG/ML VIAL IV SCH (09:00)
[2019-02-15] MEDS: HYDROCODONE/ACETAMINOPHEN 5/325MG TABLET PO PRN (09:17)
[2019-02-15] MEDS: INSULIN GLARGINE UD 100 UNITS/ML SYR SUBCUT SCH ×2 (10:09→23:35)
[2019-02-15] MEDS: IPRATROPIUM/ALBUTEROL 0.5-3(2.5)MG/3ML NEB HHN SCH ×3 (10:51→19:57)
[2019-02-15] MEDS ORDERED: PNEUMOCOCCAL 23-VAL P-SAC VAC 0.5 ML IM ONE (12:00)
[2019-02-15] MEDS: ENOXAPARIN 40MG/0.4ML SYR SUBCUT SCH (15:37)
[2019-02-15] MEDS: VANCOMYCIN 750 MG PREMIX 150 ML IV SCH (17:27)
[2019-02-15 20:00] VITALS: BP 105/57
[2019-02-15] MEDS ORDERED: VANCOMYCIN 750 MG PREMIX 150 ML IV SCH ×2 (21:00)
[2019-02-15] MEDS ORDERED: FAMOTIDINE 40MG TABLET PO SCH (21:00)
[2019-02-15] MEDS: ATORVASTATIN CALCIUM 40MG TABLET PO SCH (21:44)
[2019-02-16] MEDS: IPRATROPIUM/ALBUTEROL 0.5-3(2.5)MG/3ML NEB HHN SCH ×4 (02:17→20:22)
[2019-02-16] MEDS: PIPERACILLIN/TAZOBACTAM 2.25 G in DEXTROSE 5% WATER 50 ML IV SCH ×2 (02:32→08:46)
[2019-02-16] MEDS: HYDRALAZINE HCL 50MG TABLET PO SCH ×3 (05:57→21:26)
[2019-02-16 06:32] LABS: HEMATOCRIT 36.1 % (36.0-48.0); HEMOGLOBIN 12.3 g/dL (12.0-16.0); MEAN CORPUSCULAR HEMOGLOBIN 30.8 pg (28.0-32.0); MEAN CORPUSCULAR VOLUME 90.3 fL (81.0-99.0); PLATELET 225 x1000/uL (130-400); RED CELL DISTRIBUTION WIDTH 13.4 % (11.6-14.6)
[2019-02-16] MEDS: BLOOD SUGAR DIAGNOSTIC STRIP TEST SCH ×4 (07:01→21:26)
[2019-02-16] MEDS: INSULIN LISPRO 100 UNITS/ML SUBCUT SCH ×4 (07:02→21:00)
[2019-02-16 08:00] VITALS: BP 121/60
[2019-02-16 08:34] VITALS: BP 121/60
[2019-02-16] MEDS: AMLODIPINE 5MG TABLET PO SCH (08:46)
[2019-02-16] MEDS: ASPIRIN 81MG TABLET PO SCH (08:46)
[2019-02-16] MEDS: FUROSEMIDE 40MG TABLET PO SCH (08:46)
[2019-02-16] MEDS: GABAPENTIN 100MG CAPSULE PO SCH (08:46)
[2019-02-16] MEDS ORDERED: METHYLPREDNISOLONE SOD SUCC 40 MG/ML VIAL IV SCH (09:00)
[2019-02-16] MEDS: INSULIN GLARGINE UD 100 UNITS/ML SYR SUBCUT SCH ×2 (12:08→21:37)
[2019-02-16] MEDS: VANCOMYCIN 750 MG PREMIX 150 ML IV SCH (12:09)
[2019-02-16] MEDS: LACTULOSE 20G/30ML UDC PO SCH ×2 (14:13→16:55)
[2019-02-16] MEDS ORDERED: BISACODYL 10MG SUPP PR PRN (14:15)
[2019-02-16] MEDS ORDERED: NA PHOS,M-B/NA PHOS,DI-BA ENEMA 118ML PR PRN (14:15)
[2019-02-16] MEDS ORDERED: POTASSIUM CHLORIDE 20MEQ TABLET SR PO NR (16:30)
[2019-02-16] MEDS: ENOXAPARIN 40MG/0.4ML SYR SUBCUT SCH (16:55)
[2019-02-16] MEDS ORDERED: LEVOFLOXACIN 500MG TABLET PO SCH (17:00)
[2019-02-16 20:00] VITALS: BP 124/46
[2019-02-16] MEDS: ATORVASTATIN CALCIUM 40MG TABLET PO SCH (21:27)
[2019-02-16] MEDS: FAMOTIDINE 20MG TABLET PO SCH (21:27)
[2019-02-17] MEDS: IPRATROPIUM/ALBUTEROL 0.5-3(2.5)MG/3ML NEB HHN SCH ×4 (01:52→20:12)
[2019-02-17 02:49] LABS: CLARITY URINE CLEAR (CLEAR); COLOR URINE YELLOW (YELLOW); KETONES URINE NEGATIVE (NEGATIVE); LEUKOCYTE ESTERASE URINE NEGATIVE (NEGATIVE); NITRITE URINE NEGATIVE (NEGATIVE); OCCULT BLOOD URINE NEGATIVE (NEGATIVE); PH URINE 5.5 (4.5-8.0); PROTEIN URINE TRACE (NEGATIVE); SPECIFIC GRAVITY URINE 1.018 (1.005-1.030); UROBILINOGEN URINE 0.2 E.U./dL (0.2-1.0)
[2019-02-17] MEDS: LACTULOSE 20G/30ML UDC PO SCH ×4 (06:00→17:37)
[2019-02-17] MEDS: HYDRALAZINE HCL 50MG TABLET PO SCH ×3 (06:12→21:31)
[2019-02-17] MEDS: BLOOD SUGAR DIAGNOSTIC STRIP TEST SCH ×4 (06:12→21:31)
[2019-02-17] MEDS: INSULIN LISPRO 100 UNITS/ML SUBCUT SCH ×4 (06:31→21:37)
[2019-02-17 08:05] VITALS: BP 106/50
[2019-02-17] MEDS: FUROSEMIDE 40MG TABLET PO SCH (08:33)
[2019-02-17] MEDS: ASPIRIN 81MG TABLET PO SCH (08:33)
[2019-02-17] MEDS: PREDNISONE 20MG TABLET PO SCH (08:33)
[2019-02-17] MEDS: GABAPENTIN 100MG CAPSULE PO SCH (08:33)
[2019-02-17] MEDS: AMLODIPINE 5MG TABLET PO SCH (08:36)
[2019-02-17] MEDS: INSULIN GLARGINE UD 100 UNITS/ML SYR SUBCUT SCH ×2 (11:57→21:37)
[2019-02-17] MEDS: ENOXAPARIN 40MG/0.4ML SYR SUBCUT SCH (16:20)
[2019-02-17] MEDS: LEVOFLOXACIN 250MG TABLET PO SCH (16:20)
[2019-02-17 20:00] VITALS: BP 113/53
[2019-02-17] MEDS: FAMOTIDINE 20MG TABLET PO SCH (21:31)
[2019-02-17] MEDS: ATORVASTATIN CALCIUM 40MG TABLET PO SCH (21:31)
[2019-02-18] MEDS: IPRATROPIUM/ALBUTEROL 0.5-3(2.5)MG/3ML NEB HHN SCH ×4 (00:18→21:21)
[2019-02-18] MEDS: LACTULOSE 20G/30ML UDC PO SCH ×3 (06:00→12:00)
[2019-02-18] MEDS: BLOOD SUGAR DIAGNOSTIC STRIP TEST SCH ×4 (06:09→21:43)
[2019-02-18] MEDS: HYDRALAZINE HCL 50MG TABLET PO SCH ×3 (06:09→22:00)
[2019-02-18] MEDS: INSULIN LISPRO 100 UNITS/ML SUBCUT SCH ×4 (06:10→23:13)
[2019-02-18] MEDS: GABAPENTIN 100MG CAPSULE PO SCH (08:41)
[2019-02-18] MEDS: AMLODIPINE 5MG TABLET PO SCH (08:41)
[2019-02-18] MEDS: PREDNISONE 20MG TABLET PO SCH (08:41)
[2019-02-18] MEDS: ASPIRIN 81MG TABLET PO SCH (08:42)
[2019-02-18] MEDS: FUROSEMIDE 40MG TABLET PO SCH (08:42)
[2019-02-18 09:21] VITALS: BP 149/46
[2019-02-18 10:10] VITALS: BP 144/100
[2019-02-18] MEDS: INSULIN GLARGINE UD 100 UNITS/ML SYR SUBCUT SCH ×2 (10:17→23:14)
[2019-02-18] MEDS: HYDROCODONE/ACETAMINOPHEN 5/325MG TABLET PO PRN (10:17)
[2019-02-18 13:40] VITALS: BP 120/51
[2019-02-18] MEDS: LEVOFLOXACIN 250MG TABLET PO SCH (16:48)
[2019-02-18] MEDS: ENOXAPARIN 40MG/0.4ML SYR SUBCUT SCH (16:48)
[2019-02-18 20:00] VITALS: BP 116/46
[2019-02-18] MEDS: FAMOTIDINE 20MG TABLET PO SCH (21:39)
[2019-02-18] MEDS: ATORVASTATIN CALCIUM 40MG TABLET PO SCH (21:40)
[2019-02-19] MEDS: IPRATROPIUM/ALBUTEROL 0.5-3(2.5)MG/3ML NEB HHN SCH ×4 (01:42→21:07)
[2019-02-19] MEDS: HYDRALAZINE HCL 50MG TABLET PO SCH ×3 (06:05→21:10)
[2019-02-19] MEDS: BLOOD SUGAR DIAGNOSTIC STRIP TEST SCH ×4 (06:30→21:09)
[2019-02-19] MEDS: INSULIN LISPRO 100 UNITS/ML SUBCUT SCH ×4 (07:39→21:49)
[2019-02-19 08:00] VITALS: BP 118/46
[2019-02-19 08:20] LABS: HEMATOCRIT 37.4 % (36.0-48.0); HEMOGLOBIN 12.2 g/dL (12.0-16.0); MEAN CORPUSCULAR VOLUME 91.9 fL (81.0-99.0); PLATELET 217 x1000/uL (130-400); RED BLOOD CELL COUNT 4.07 mill/uL (4.2-5.4); RED CELL DISTRIBUTION WIDTH 13.9 % (11.6-14.6)
[2019-02-19] MEDS: AMLODIPINE 5MG TABLET PO SCH (08:28)
[2019-02-19] MEDS: GABAPENTIN 100MG CAPSULE PO SCH (08:28)
[2019-02-19] MEDS: PREDNISONE 20MG TABLET PO SCH (08:28)
[2019-02-19] MEDS: ASPIRIN 81MG TABLET PO SCH (08:28)
[2019-02-19] MEDS: FUROSEMIDE 40MG TABLET PO SCH (08:28)
[2019-02-19] MEDS: INSULIN GLARGINE UD 100 UNITS/ML SYR SUBCUT SCH ×2 (11:48→21:49)
[2019-02-19] MEDS: ENOXAPARIN 40MG/0.4ML SYR SUBCUT SCH (16:59)
[2019-02-19] MEDS ORDERED: POTASSIUM CHLORIDE 20MEQ TABLET SR PO NR (18:45)
[2019-02-19 20:00] VITALS: BP 123/88
[2019-02-19] MEDS: FAMOTIDINE 20MG TABLET PO SCH (20:46)
[2019-02-19] MEDS: ATORVASTATIN CALCIUM 40MG TABLET PO SCH (20:46)
[2019-02-20] MEDS: IPRATROPIUM/ALBUTEROL 0.5-3(2.5)MG/3ML NEB HHN SCH ×4 (02:17→21:09)
[2019-02-20] MEDS: HYDRALAZINE HCL 50MG TABLET PO SCH ×3 (06:25→22:41)
[2019-02-20] MEDS: BLOOD SUGAR DIAGNOSTIC STRIP TEST SCH ×4 (06:27→22:00)
[2019-02-20] MEDS: INSULIN LISPRO 100 UNITS/ML SUBCUT SCH ×4 (06:53→23:07)
[2019-02-20 08:11] VITALS: BP 126/60
[2019-02-20] MEDS: GABAPENTIN 100MG CAPSULE PO SCH (08:15)
[2019-02-20] MEDS: ASPIRIN 81MG TABLET PO SCH (08:15)
[2019-02-20] MEDS: FUROSEMIDE 40MG TABLET PO SCH (08:15)
[2019-02-20] MEDS: PREDNISONE 20MG TABLET PO SCH (08:15)
[2019-02-20] MEDS: AMLODIPINE 5MG TABLET PO SCH (08:16)
[2019-02-20] MEDS: INSULIN GLARGINE UD 100 UNITS/ML SYR SUBCUT SCH ×2 (09:11→22:00)
[2019-02-20] MEDS ORDERED: HYDROCODONE/ACETAMINOPHEN 5/325MG TABLET PO PRN (10:15)
[2019-02-20 13:07] VITALS: BP 133/56
[2019-02-20] MEDS: ENOXAPARIN 40MG/0.4ML SYR SUBCUT SCH (15:14)
[2019-02-20 20:00] VITALS: BP 126/49
[2019-02-20] MEDS: FAMOTIDINE 20MG TABLET PO SCH (22:41)
[2019-02-20] MEDS: ATORVASTATIN CALCIUM 40MG TABLET PO SCH (22:41)
[2019-02-21] MEDS: IPRATROPIUM/ALBUTEROL 0.5-3(2.5)MG/3ML NEB HHN SCH ×4 (02:50→20:02)
[2019-02-21] MEDS: HYDRALAZINE HCL 50MG TABLET PO SCH ×3 (06:03→21:45)
[2019-02-21] MEDS: BLOOD SUGAR DIAGNOSTIC STRIP TEST SCH ×4 (06:03→21:50)
[2019-02-21] MEDS: INSULIN LISPRO 100 UNITS/ML SUBCUT SCH ×4 (07:14→21:46)
[2019-02-21 07:57] VITALS: BP 148/73
[2019-02-21] MEDS: ASPIRIN 81MG TABLET PO SCH (08:35)
[2019-02-21] MEDS: AMLODIPINE 5MG TABLET PO SCH (08:35)
[2019-02-21] MEDS: GABAPENTIN 100MG CAPSULE PO SCH (08:35)
[2019-02-21] MEDS: PREDNISONE 20MG TABLET PO SCH (08:35)
[2019-02-21] MEDS: FUROSEMIDE 40MG TABLET PO SCH (08:35)
[2019-02-21] MEDS: INSULIN GLARGINE UD 100 UNITS/ML SYR SUBCUT SCH ×2 (10:07→21:49)
[2019-02-21] MEDS: ENOXAPARIN 40MG/0.4ML SYR SUBCUT SCH (16:42)
[2019-02-21 20:00] VITALS: BP 139/70
[2019-02-21] MEDS: FAMOTIDINE 20MG TABLET PO SCH (21:45)
[2019-02-21] MEDS: ATORVASTATIN CALCIUM 40MG TABLET PO SCH (21:45)
[2019-02-22] MEDS: IPRATROPIUM/ALBUTEROL 0.5-3(2.5)MG/3ML NEB HHN SCH ×4 (02:11→21:02)
[2019-02-22] MEDS: HYDRALAZINE HCL 50MG TABLET PO SCH ×3 (06:00→22:00)
[2019-02-22] MEDS: BLOOD SUGAR DIAGNOSTIC STRIP TEST SCH ×4 (06:06→21:00)
[2019-02-22] MEDS: INSULIN LISPRO 100 UNITS/ML SUBCUT SCH ×4 (06:07→22:08)
[2019-02-22 07:13] LABS: HEMATOCRIT 38.1 % (36.0-48.0); HEMOGLOBIN 12.5 g/dL (12.0-16.0); MEAN CORPUSCULAR HEMOGLOBIN 30.2 pg (28.0-32.0); MEAN CORPUSCULAR VOLUME 91.7 fL (81.0-99.0); PLATELET 218 x1000/uL (130-400); RED BLOOD CELL COUNT 4.15 mill/uL (4.2-5.4); RED CELL DISTRIBUTION WIDTH 13.9 % (11.6-14.6)
[2019-02-22 08:00] VITALS: BP 152/68
[2019-02-22] MEDS: AMLODIPINE 5MG TABLET PO SCH (08:46)
[2019-02-22] MEDS: FUROSEMIDE 40MG TABLET PO SCH (08:46)
[2019-02-22] MEDS: GABAPENTIN 100MG CAPSULE PO SCH (08:46)
[2019-02-22] MEDS: ASPIRIN 81MG TABLET PO SCH (08:46)
[2019-02-22] MEDS: PREDNISONE 20MG TABLET PO SCH (08:46)
[2019-02-22] MEDS: INSULIN GLARGINE UD 100 UNITS/ML SYR SUBCUT SCH ×2 (11:01→22:07)
[2019-02-22] MEDS ORDERED: POTASSIUM CHLORIDE 20MEQ/PACKET PO NR ×2 (13:30→17:30)
[2019-02-22] MEDS: ENOXAPARIN 40MG/0.4ML SYR SUBCUT SCH (17:38)
[2019-02-22] MEDS ORDERED: PIPERACILLIN/TAZOBACTAM 3.375 G in DEXT 5% WATER 100 ML IV SCH (18:00)
[2019-02-22 20:00] VITALS: BP 117/60
[2019-02-22] MEDS: FAMOTIDINE 20MG TABLET PO SCH (22:04)
[2019-02-22] MEDS: AMOXICILLIN/POTASSIUM CLAVULANATE 875/125MG TAB PO SCH (22:04)
[2019-02-22] MEDS: ATORVASTATIN CALCIUM 40MG TABLET PO SCH (22:05)
[2019-02-23] MEDS: IPRATROPIUM/ALBUTEROL 0.5-3(2.5)MG/3ML NEB HHN SCH ×3 (02:34→13:45)
[2019-02-23] MEDS: BLOOD SUGAR DIAGNOSTIC STRIP TEST SCH ×2 (05:54→11:11)
[2019-02-23] MEDS: INSULIN LISPRO 100 UNITS/ML SUBCUT SCH ×2 (05:54→12:55)
[2019-02-23] MEDS: HYDRALAZINE HCL 50MG TABLET PO SCH ×2 (05:54→13:07)
[2019-02-23 07:28] LABS: HEMOGLOBIN 12.8 g/dL (12.0-16.0); MEAN CORPUSCULAR HEMOGLOBIN 30.1 pg (28.0-32.0); MEAN CORPUSCULAR VOLUME 91.5 fL (81.0-99.0); PLATELET 222 x1000/uL (130-400); RED BLOOD CELL COUNT 4.26 mill/uL (4.2-5.4); RED CELL DISTRIBUTION WIDTH 14.2 % (11.6-14.6)
[2019-02-23 08:00] VITALS: BP 144/73
[2019-02-23] MEDS: AMLODIPINE 5MG TABLET PO SCH (09:09)
[2019-02-23] MEDS: PREDNISONE 20MG TABLET PO SCH (09:09)
[2019-02-23] MEDS: GABAPENTIN 100MG CAPSULE PO SCH (09:09)
[2019-02-23] MEDS: FUROSEMIDE 40MG TABLET PO SCH (09:09)
[2019-02-23] MEDS: ASPIRIN 81MG TABLET PO SCH (09:09)
[2019-02-23] MEDS: AMOXICILLIN/POTASSIUM CLAVULANATE 875/125MG TAB PO SCH (09:09)
[2019-02-23] MEDS: INSULIN GLARGINE UD 100 UNITS/ML SYR SUBCUT SCH (09:31)
[2019-02-23 12:45] VITALS: BP 133/66
[2019-02-23] MEDS ORDERED: FLUT1AER INH (13:33)
[2019-02-23] MEDS ORDERED: P20 PO (13:33)
[2019-02-23] MEDS ORDERED: AMOX-424 MT (13:33)
[2019-02-23] MEDS ORDERED: ALBU05 NEB (13:33)
[2019-02-23 14:12] VITALS: BP 144/73
[2019-02-23] MEDS: ENOXAPARIN 40MG/0.4ML SYR SUBCUT SCH (16:09)
== END 2019-02-23 16:11 | disposition home health service (06) | DRG 551 ==
PROVIDERS: ADMIT Psychiatry & Neurology Neurology; ATTEND Ophthalmology
DX: M54.16 Radiculopathy, lumbar region (principal); I50.33 Acute on chronic diastolic (congestive) heart failure; E87.1 Hypo-osmolality and hyponatremia; E87.2 Acidosis; D72.829 Elevated white blood cell count, unspecified; T38.0X5A Adverse effect of glucocorticoids and synthetic analogues, initial encounter; Y92.89 Other specified places as the place of occurrence of the external cause; E11.9 Type 2 diabetes mellitus without complications; E87.6 Hypokalemia; F03.90 Unspecified dementia, unspecified severity, without behavioral disturbance, psychotic disturbance, mood disturbance, and anxiety; F39 Unspecified mood [affective] disorder; G89.29 Other chronic pain; I11.0 Hypertensive heart disease with heart failure; I27.20 Pulmonary hypertension, unspecified; J44.9 Chronic obstructive pulmonary disease, unspecified; K59.00 Constipation, unspecified; K80.20 Calculus of gallbladder without cholecystitis without obstruction; M48.061 Spinal stenosis, lumbar region without neurogenic claudication
CPT/HCPCS: 36415; 71045; 80048; 80202; 81003; 82040; 82962; 83735; 85025; 85027; 90732; 93970; 94640; 97110; 97116; 97150; 97162; 97166; 97530; 97535; J1650; J1815; J2543; J2920; J3370; J7040; J7060; J7512; J7620